=== PATIENT | male | born 2000 | race Hispanic/Latino ===

== ENCOUNTER 2021-08-02 22:54 | Emergency (ER) | payer MEDICARE, OTHER ==
[~2021-08-02] VITALS: Ht 167.6 cm; Wt 127.0 kg
[2021-08-02] MEDS ORDERED: ONDANSETRON HCL INJ 2MG/ML 2ML 2 MG/ML VIAL IV STA (23:09)
[2021-08-02] MEDS ORDERED: SODIUM CHLORIDE 0.9% 1000ML 1,000 ML IV STA (23:09)
[2021-08-02] MEDS ORDERED: KETOROLAC TROMETHAMINE 30 MG/ML VIAL IV STA (23:09)
[2021-08-02 23:27] LABS: BASOPHILS % 0.5 % (0.0-1.0); EOSINOPHILS # (AUTO) 0.1 (0.0-0.4); EOSINOPHILS % 1.4 % (0.0-6.0); HEMATOCRIT 47.6 % (38.2-49.6); HEMOGLOBIN 16.6 g/dL (14.0-18.0); LYMPHOCYTES # (AUTO) 2.9 (1.0-3.2); LYMPHOCYTES % 49.4 % (18.0-39.1); MEAN CORPUSCULAR HEMOGLOBIN 27.3 pg (28-32); MEAN CORPUSCULAR HGB CONC 34.9 g/dL (31-35); MEAN CORPUSCULAR VOLUME 78.2 fL (81-99); MONOCYTES # (AUTO) 0.4 (0.2-0.8); MONOCYTES % 6.6 % (4.4-11.3); NEUTROPHILS # (AUTO) 2.5 (2.1-6.9); NEUTROPHILS % 41.9 % (38.7-80.0); PLATELET COUNT 239 x10e3/uL (140-360); RED BLOOD COUNT 6.09 x10e6/uL (4.3-5.7); RED CELL DISTRIBUTION WIDTH 12.4 % (11.7-14.4)
[2021-08-02 23:29] LABS: CLARITY,URINE CLOUDY (CLEAR); COLOR,URINE YELLOW (YELLOW); LEUKOCYTE ESTERASE ,URINE NEGATIVE (NEGATIVE); NITRITE,URINE NEGATIVE (NEGATIVE)
[2021-08-02 23:30] LABS: KETONES,URINE NEGATIVE (NEGATIVE); PROTEIN,URINE DIPSTICK 2+ (NEGATIVE); URINE UROBILINOGEN 0.2 mg/dL (0.2 - 1)
[2021-08-02] MEDS ORDERED: IOPAMIDOL 370 MG/ML 200 ML INFUS..BTL INJ ONE (23:36)
[2021-08-02] MEDS ORDERED: SODIUM CHLORIDE 0.9% 50ML 50 ML ONE (23:36)
[2021-08-02 23:41] LABS: BACTERIA,URINE MODERATE /HPF; EPITHELIAL CELLS,URINE FEW /LPF
[2021-08-02 23:42] LABS: YEAST,URINE MODERATE
[2021-08-02 23:45] LABS: ALBUMIN 4.1 g/dL (3.5-5.0); ANION GAP 19.7 mmol/L (8-16); CALCIUM 9.7 mg/dL (8.4-10.2); CREATININE, SERUM 0.87 mg/dL (0.72-1.25); POTASSIUM 3.7 mmol/L (3.5-5.1)
== END 2021-08-03 01:48 | disposition home or self-care (01) ==
LOC: ER 23:26
DX: R10.32 Left lower quadrant pain (principal); R19.7 Diarrhea, unspecified; R16.1 Splenomegaly, not elsewhere classified
CPT/HCPCS: 36415; 74177; 80053; 81001; 83690; 85025; 99284; J1885; J2405; J7030; Q9967

== ENCOUNTER 2022-01-10 15:00 | Emergency (ER) | payer OTHER ==
[~2022-01-10] VITALS: Ht 167.6 cm; Wt 127.0 kg
[2022-01-10] MEDS ORDERED: LIDOCAINE 1% 5ML-MPF INJ ONE (15:15)
[2022-01-10] MEDS ORDERED: MOTRIN800 MG PEG (15:49)
[2022-01-10] MEDS ORDERED: SULFAMETHOXAZO1 EACH PEG (15:49)
== END 2022-01-10 16:30 | disposition home or self-care (01) ==
LOC: ER 15:06
DX: L05.01 Pilonidal cyst with abscess (principal); E11.65 Type 2 diabetes mellitus with hyperglycemia
CPT/HCPCS: 36415; 82948; 99284

== ENCOUNTER 2022-03-12 22:53 | Emergency (ER) | payer OTHER ==
[~2022-03-12] VITALS: Ht 167.6 cm; Wt 127.0 kg
[~2022-03-12 22:53] MED LIST: MOTRIN800 MG PEG; SULFAMETHOXAZO1 EACH PEG
[2022-03-12] MEDS ORDERED: IBUPROFEN 600 MG TAB PO ONE (23:15)
[2022-03-12] MEDS ORDERED: IBUPROFEN 600 MG TAB ONE (23:20)
== END 2022-03-13 00:26 | disposition home or self-care (01) ==
LOC: ER 23:13
DX: S93.692A Other sprain of left foot, initial encounter (principal); Y93.01 Activity, walking, marching and hiking; Y92.89 Other specified places as the place of occurrence of the external cause; E11.9 Type 2 diabetes mellitus without complications
CPT/HCPCS: 99283

== ENCOUNTER 2023-05-27 00:57 | Emergency (ER) | payer OTHER | END 2023-05-27 01:09 | disposition left against medical advice (07) | LOC: ER 01:01 | DX: M79.662 Pain in left lower leg (principal) ==